=== PATIENT | male | born 1970 | race Caucasian/White ===

== ENCOUNTER 2020-04-23 14:36 | Emergency (ER) | payer OTHER, SELFPAY ==
[2020-04-23 14:50] VITALS: BP 155/81; PULSE 87; RESP 20; TEMP 36.7; O2SAT 100
--- NOTE | 2020-04-23 14:53 | ED.GENADULT ---
HPI - General Adult General Chief complaint: Skin/Abscess/Foreign Body Stated complaint: Infected Blister Time Seen by Provider: 04/23/20 14:54 Source: patient Mode of arrival: ambulatory Limitations: no limitations History of Present Illness HPI narrative: 49-year-old male patient presents to the [facility] with complaints of a wound to the right index finger for the past 2 months. Patient states anytime he bumps it or messes with it it does start bleeding. Denies any pain to the area. Denies any fevers, body aches or chills. Patient states he has tried several [id number] treatments thinking it might be a wart and tried to freeze it multiple times without much relief. Related Data Home Medications Medication Instructions Recorded Confirmed omeprazole 20 mg PO DAILY 04/23/20 04/23/20 Allergies Allergy/AdvReac Type Severity Reaction Status Date / Time venom-honey bee Allergy Severe Swelling Verified 04/23/20 14:56 Review of Systems Review of Systems: Narrative: CONSTITUTIONAL: Denies fever, chills, or sweats. EYES: Denies visual changes, redness, or discharge. ENT: Denies rhinorrhea, congestion, sore throat, or otalgia. CARDIOVASCULAR: Denies chest pain, palpitations, or edema. RESPIRATORY: Denies cough or dyspnea. GASTROINTESTINAL: Denies abdominal pain, nausea, vomiting, or diarrhea. GENITOURINARY: Denies dysuria or hematuria. SKIN: Denies rash or itching. Positive wound to right index finger x2 months MUSCULOSKELETAL: Denies back pain, joint pain, or myalgia. NEUROLOGIC: Denies headache, numbness, or weakness. PSYCHIATRIC: Denies anxiety or depression. [facility]LY [facility] Past Medical History Medical History (Updated 04/23/20 @ 15:16 by SUSANNAH Fernández) Barretts esophagus History of reproductive disorder Testicular varicele Comments At the time of my signature I agree with nursing past medical history, surgical, social, and family history. There is no relevant family history pertinent to the presenting complaint. Exam Narrative: Exam Narrative: GENERAL: Well-appearing, well-nourished, and in no acute distress. HEAD: Normocephalic, atraumatic. EYES: PERRLA and EOMI. ENT: Nares clear, no rhinorrhea or epistaxis. Mucous membranes moist. NECK: Supple. No lymphadenopathy CHEST: Clear to auscultation. No respiratory distress. HEART: Regular rate and rhythm. No murmur heard. Normal peripheral pulses. ABDOMEN: Soft, nontender, nondistended, normal active bowel sounds. EXTREMITIES: Normal range of motion. No edema. SKIN: Warm, dry, no rash. Patient has what appears to be a wart noted to the lateral side of the right index finger. It measures approximately 1.5 cm. It is very rough on the top. There is no pain or tenderness noted. No active bleeding at this time. Does appear that the skin around the wart area is turning white and peeling. Patient states he does keep a Band-Aid on it almost at all times NEURO: No focal deficits. Alert and oriented x3. Course Vital Signs Vital signs: Vital Signs Temperature 36.7 C 04/23/20 14:50 Pulse Rate 87 04/23/20 14:50 Respiratory Rate 20 04/23/20 14:50 Blood Pressure 155/81 H 04/23/20 14:50 Pulse Oximetry 100 04/23/20 14:50 Temperature 36.7 C 04/23/20 14:50 Pulse Rate 87 04/23/20 14:50 Respiratory Rate 20 04/23/20 14:50 Blood Pressure 155/81 H 04/23/20 14:50 Pulse Oximetry 100 04/23/20 14:50 Vital signs reviewed The patient has been informed that they may have pre-hypertension or Hypertension based on a BP reading in the department. I recommend that the patient call the primary care provider listed on their discharge instructions or a physician of their choice this week to arrange follow up for further evaluation of possible pre-hypertension or Hypertension Medical Decision Making Differential Diagnosis Differential Diagnosis: Differential diagnosis: Abscess, cellulitis, hidradenitis, laceration, puncture wound. Discussed with snow
== END 2020-04-23 15:23 | disposition home or self-care (01) ==
PROVIDERS: Emergency Provider Nurse Practitioner Family
DX: B07.9 Viral wart, unspecified (principal); K22.70 Barrett's esophagus without dysplasia
CPT/HCPCS: 99203; G0463